=== PATIENT | female | born 1960 | race Hispanic/Latino ===

== ENCOUNTER 2016-06-22 14:47 | Outpatient (CLI) | payer SELFPAY ==
[2016-06-23 18:57] LABS: HIV (1/2) Antibody/Antigen Non-Reactive (NonReactive); HIV 1/2 INDEX 0.27 S/CO (<1.00)
== END 2016-06-22 14:48 | disposition home or self-care (01) ==
LOC: HPCALD 14:47
PROVIDERS: ATTEND Physician Assistant
DX: N76.0 Acute vaginitis (principal)
CPT/HCPCS: 36415; 86592; 87389; 87480; 87491; 87510; 87529; 87591; 87660

== ENCOUNTER 2016-06-22 15:10 | Outpatient (CLI) | payer SELFPAY | END 2016-06-22 15:11 | disposition home or self-care (01) | LOC: HPCALD 15:10 | PROVIDERS: ATTEND Physician Assistant | DX: Z01.419 Encounter for gynecological examination (general) (routine) without abnormal findings (principal); N76.0 Acute vaginitis ==